=== PATIENT | female | born 2000 | race Two or more races ===

== ENCOUNTER 2022-10-17 01:30 | Emergency (ER) | payer OTHER ==
[~2022-10-17] VITALS: Ht 157.5 cm; Wt 63.5 kg
[2022-10-17] MEDS ORDERED: PROAIR RESPICL90 MCG (01:36)
== END 2022-10-17 02:43 | disposition home or self-care (01) ==
LOC: ER 01:30
DX: J45.901 Unspecified asthma with (acute) exacerbation (principal)